=== PATIENT | female | born 1990 | race Caucasian/White ===

== ENCOUNTER 2020-08-16 22:04 | Inpatient (IN) ==
[2020-08-17] MEDS ORDERED: SODIUM CHLORIDE 0.9% 1,000 ML IV STA (04:08)
[2020-08-17 04:24] LABS: Basophils % 0.3 % (0.0-0.8); Eosinophils # 0.1 10*3/uL (0.0-0.87); Eosinophils % 0.4 % (0.00-10.9); Hemoglobin 13.3 GM/DL (12.0-16.0); Immature Granulocytes % 0.4 %; Immature Granulocytes Absolute 0.05 #; Lymphocytes # 1.5 10*3/uL (1.4-4.0); Mean Corpuscular HGB Conc 33.3 GM/DL (32-36); Mean Corpuscular Volume 91.3 FL (87-102); Mean Platelet Volume 9.5 FL (9.6-12.0); Monocytes % 7.5 % (1.7-12.7); Neutrophils % 78.4 % (38.7-73.9); Platelet Count 208 T/CUMM (130-400); Red Blood Count 4.38 MC/CUMM (3.8-5.5); White Blood Count 11.5 T/CUMM (4-12)
[2020-08-17 04:34] LABS: Bilirubin,Urine Negative (Negative); Blood, Urine Large mg/dL (Negative); Glucose,Urine (UA) Negative (Negative); Ketones,Urine 5 mg/dL (Negative); Mucus,Urine Moderate /LPF (Occasional); Nitrite,Urine Negative (Negative); Protein,Urine 100 MG/DL; RBC,Urine 3492 /HPF (0-4); Squamous Epithelial Cell,Urine Occasional /HPF (0-10); Urine Appearance CLOUDY (Clear); Urine Color Amber (Yellow); Urine Urobilinogen < 2.0 EU/DL (0.2-1.0)
[2020-08-17 04:55] LABS: Alanine Aminotransferase 17 U/L (13-56); Alkaline Phosphatase 67 U/L (45-117); Aspartate Amino Transferase 13 U/L (0-37); Bilirubin,Total < 0.39 MG/DL (0.2-1.0); Blood Urea Nitrogen 13 MG/DL (7-18); Calcium 8.7 MG/DL (8.5-10.1); Carbon Dioxide 28 MMOL/L (21-32); Estimated Glom Filtration Rate 56 ML/MIN; Glucose 120 MG/DL (74-106); Potassium 3.6 MMOL/L (3.5-5.1); Sodium 136 MMOL/L (136-145); Total Protein 6.7 G/DL (6.4-8.2)
[2020-08-17] MEDS ORDERED: cefTRIAXone 1,000 MG in SODIUM CHLORIDE 0.9% 100 ML IV STA (05:03)
[2020-08-17] MEDS ORDERED: ONDANSETRON 4 MG/2 ML VIAL ONE (05:42)
[2020-08-17] MEDS ORDERED: MORPHINE 4 MG/1 ML VIAL ONE (05:43)
[2020-08-17] MEDS ORDERED: ONDANSETRON 4 MG/2 ML VIAL IV PRN ×2 (05:44→07:53)
[2020-08-17] MEDS ORDERED: MORPHINE 4 MG/1 ML VIAL IV STA (05:48)
[2020-08-17] MEDS ORDERED: ONDANSETRON 4 MG/2 ML VIAL IV STA (05:49)
[2020-08-17] MEDS ORDERED: SODIUM CHLORIDE 0.45% 1,000 ML IV SCH (06:00)
[2020-08-17] MEDS ORDERED: DEXAMETHASONE 4 MG/1 ML VIAL ONE (08:27)
[2020-08-17] MEDS ORDERED: LIDOCAINE 2% 5 ML VIAL ONE (08:27)
[2020-08-17] MEDS ORDERED: fentaNYL 100 MCG/2 ML VIAL ONE (08:27)
[2020-08-17] MEDS ORDERED: propofoL 200 MG/20 ML VIAL IV ONE (08:27)
[2020-08-17] MEDS ORDERED: SUCCINYLCHOLINE 200 MG/10 ML VIAL ONE (08:27)
[2020-08-17] MEDS ORDERED: LACTATED RINGERS 1,000 ML IV ONE (08:28)
[2020-08-17 08:30] LABS: Bacteria,Urine Occasional /HPF (Few); Bilirubin,Urine Negative (Negative); Blood, Urine Large mg/dL (Negative); Glucose,Urine (UA) Negative (Negative); Ketones,Urine Negative (Negative); Mucus,Urine Occasional /LPF (Occasional); Nitrite,Urine Negative (Negative); Protein,Urine Negative; RBC,Urine 167 /HPF (0-4); Urine Appearance CLEAR (Clear); Urine Color Straw (Yellow); Urine Specific Gravity 1.006 (1.001-1.035); Urine Urobilinogen < 2.0 EU/DL (0.2-1.0)
[2020-08-17] MEDS ORDERED: MIDAZOLAM 2 MG/2 ML VIAL ONE (08:37)
[2020-08-17] MEDS: HYDROmorphone 2 MG/1 ML VIAL IV PRN ×2 (09:06→09:12)
[2020-08-17] MEDS: MORPHINE 4 MG/1 ML VIAL IV PRN ×2 (10:20→15:44)
[2020-08-17] MEDS: SODIUM CHLORIDE 0.9% 1,000 ML IV SCH ×2 (12:57→21:02)
[2020-08-17] MEDS: OXYBUTYNIN 5 MG TABLET PO PRN ×2 (12:58→19:43)
[2020-08-17] MEDS: cefTRIAXone 1,000 MG in SODIUM CHLORIDE 0.9% 100 ML IV SCH (17:32)
[2020-08-17] MEDS: DOCUSATE SODIUM 100 MG CAPSULE PO SCH (21:02)
[2020-08-17] MEDS: MORPHINE 2 MG/1 ML SYRINGE IV PRN (21:04)
[2020-08-18] MEDS: MORPHINE 2 MG/1 ML SYRINGE IV PRN ×4 (01:29→19:48)
[2020-08-18] MEDS: OXYBUTYNIN 5 MG TABLET PO PRN ×2 (04:30→14:31)
[2020-08-18] MEDS: SODIUM CHLORIDE 0.9% 1,000 ML IV SCH ×3 (05:02→19:46)
[2020-08-18] MEDS: DOCUSATE SODIUM 100 MG CAPSULE PO SCH ×2 (09:27→20:57)
[2020-08-18] MEDS: cefTRIAXone 1,000 MG in SODIUM CHLORIDE 0.9% 100 ML IV SCH ×2 (09:27→16:59)
[2020-08-19] MEDS: MORPHINE 2 MG/1 ML SYRINGE IV PRN ×4 (02:15→18:08)
[2020-08-19] MEDS: OXYBUTYNIN 5 MG TABLET PO PRN ×3 (05:14→20:53)
[2020-08-19 06:16] LABS: Basophils % 0.3 % (0.0-0.8); Eosinophils # 0.1 10*3/uL (0.0-0.87); Eosinophils % 0.9 % (0.00-10.9); Hematocrit 34.6 VOL% (35.7-47.0); Hemoglobin 11.4 GM/DL (12.0-16.0); Immature Granulocytes % 0.3 %; Immature Granulocytes Absolute 0.02 #; Lymphocytes # 1.5 10*3/uL (1.4-4.0); Mean Corpuscular HGB Conc 32.9 GM/DL (32-36); Mean Corpuscular Volume 89.9 FL (87-102); Mean Platelet Volume 10.4 FL (9.6-12.0); Monocytes % 6.8 % (1.7-12.7); Neutrophils % 65.7 % (38.7-73.9); Platelet Count 230 T/CUMM (130-400); Red Blood Count 3.85 MC/CUMM (3.8-5.5); Red Cell Distribution Width 12.1 % (9.3-17.3); White Blood Count 5.8 T/CUMM (4-12)
[2020-08-19] MEDS: cefTRIAXone 1,000 MG in SODIUM CHLORIDE 0.9% 100 ML IV SCH (06:17)
[2020-08-19] MEDS: SODIUM CHLORIDE 0.9% 1,000 ML IV SCH ×3 (06:18→20:53)
[2020-08-19 06:39] LABS: Calcium 8.5 MG/DL (8.5-10.1); Osmolality,Calculated 285.7 MOS/KG (273-304); Potassium 3.9 MMOL/L (3.5-5.1)
[2020-08-19] MEDS: DOCUSATE SODIUM 100 MG CAPSULE PO SCH ×2 (08:28→20:53)
[2020-08-19] MEDS ORDERED: LEVOFLOXACIN INJ 500 MG/100 ML PREMIX IV SCH (13:00)
[2020-08-20] MEDS: MORPHINE 2 MG/1 ML SYRINGE IV PRN ×4 (02:01→21:40)
[2020-08-20] MEDS: OXYBUTYNIN 5 MG TABLET PO PRN ×2 (05:03→16:46)
[2020-08-20] MEDS: SODIUM CHLORIDE 0.9% 1,000 ML IV SCH ×2 (05:04→21:35)
[2020-08-20] MEDS: DOCUSATE SODIUM 100 MG CAPSULE PO SCH ×2 (08:26→21:41)
[2020-08-20] MEDS: AMPICILLIN INJ 2,000 MG in SODIUM CHLORIDE 0.9% 100 ML IV SCH ×4 (08:27→21:40)
[2020-08-21] MEDS: AMPICILLIN INJ 2,000 MG in SODIUM CHLORIDE 0.9% 100 ML IV SCH ×5 (00:32→20:55)
[2020-08-21] MEDS: OXYBUTYNIN 5 MG TABLET PO PRN ×3 (00:34→21:06)
[2020-08-21] MEDS: SODIUM CHLORIDE 0.9% 1,000 ML IV SCH ×4 (03:40→20:56)
[2020-08-21] MEDS: DOCUSATE SODIUM 100 MG CAPSULE PO SCH ×2 (12:18→20:57)
[2020-08-21] MEDS: MORPHINE 2 MG/1 ML SYRINGE IV PRN ×2 (14:06→20:05)
[2020-08-22] MEDS: AMPICILLIN INJ 2,000 MG in SODIUM CHLORIDE 0.9% 100 ML IV SCH ×6 (00:56→22:32)
[2020-08-22 04:22] LABS: Basophils # 0.1 10*3/uL (0.0-0.2); Basophils % 0.7 % (0.0-0.8); Eosinophils # 0.3 10*3/uL (0.0-0.87); Eosinophils % 3.9 % (0.00-10.9); Hematocrit 33.9 VOL% (35.7-47.0); Hemoglobin 11.4 GM/DL (12.0-16.0); Immature Granulocytes % 0.4 %; Immature Granulocytes Absolute 0.03 #; Lymphocytes # 2.8 10*3/uL (1.4-4.0); Mean Corpuscular HGB Conc 33.6 GM/DL (32-36); Mean Corpuscular Volume 89.9 FL (87-102); Mean Platelet Volume 10.1 FL (9.6-12.0); Monocytes % 5.7 % (1.7-12.7); Neutrophils % 51.3 % (38.7-73.9); Platelet Count 295 T/CUMM (130-400); Red Blood Count 3.77 MC/CUMM (3.8-5.5); Red Cell Distribution Width 11.9 % (9.3-17.3); White Blood Count 7.5 T/CUMM (4-12)
[2020-08-22 04:34] LABS: Osmolality,Calculated 276.4 MOS/KG (273-304); Potassium 3.5 MMOL/L (3.5-5.1)
[2020-08-22 05:00] LABS: Hypochromasia Slight; Microcytosis Slight
[2020-08-22 05:01] LABS: Platelet Estimate Normal
[2020-08-22] MEDS: MORPHINE 2 MG/1 ML SYRINGE IV PRN ×3 (07:39→17:52)
[2020-08-22] MEDS: DOCUSATE SODIUM 100 MG CAPSULE PO SCH ×2 (08:48→22:31)
[2020-08-22] MEDS: OXYBUTYNIN 5 MG TABLET PO PRN ×2 (08:48→22:31)
[2020-08-22] MEDS ORDERED: MAGNESIUM SULF RIDER 2 GM/50 ML PREMIX IV PRN (11:09)
[2020-08-22] MEDS ORDERED: MAGNESIUM SULF RIDER 4 GM/100 ML PREMIX IV PRN (11:09)
[2020-08-22] MEDS: SODIUM CHLORIDE 0.9% 1,000 ML IV SCH ×2 (15:19→22:31)
[2020-08-23] MEDS: AMPICILLIN INJ 2,000 MG in SODIUM CHLORIDE 0.9% 100 ML IV SCH ×6 (01:14→19:51)
[2020-08-23] MEDS: SODIUM CHLORIDE 0.9% 1,000 ML IV SCH ×3 (05:44→16:35)
[2020-08-23 05:51] LABS: Basophils % 0.4 % (0.0-0.8); Eosinophils # 0.3 10*3/uL (0.0-0.87); Eosinophils % 3.5 % (0.00-10.9); Hematocrit 41.1 VOL% (35.7-47.0); Immature Granulocytes % 0.3 %; Immature Granulocytes Absolute 0.03 #; Lymphocytes # 2.5 10*3/uL (1.4-4.0); Lymphocytes % 27.2 % (21.3-54.2); Mean Corpuscular HGB Conc 33.8 GM/DL (32-36); Mean Corpuscular Volume 89.5 FL (87-102); Mean Platelet Volume 9.6 FL (9.6-12.0); Monocytes % 5.2 % (1.7-12.7); Neutrophils % 63.4 % (38.7-73.9); Red Cell Distribution Width 11.9 % (9.3-17.3); White Blood Count 9.1 T/CUMM (4-12)
[2020-08-23 06:07] LABS: Hemoglobin 13.9 GM/DL (12.0-16.0); Red Blood Count 4.59 MC/CUMM (3.8-5.5)
[2020-08-23 06:08] LABS: Platelet Count 401 T/CUMM (130-400)
[2020-08-23 06:09] LABS: Calcium 8.2 MG/DL (8.5-10.1); Osmolality,Calculated 288.4 MOS/KG (273-304); Potassium 3.7 MMOL/L (3.5-5.1)
[2020-08-23] MEDS: MORPHINE 2 MG/1 ML SYRINGE IV PRN ×2 (07:30→12:04)
[2020-08-23] MEDS: DOCUSATE SODIUM 100 MG CAPSULE PO SCH ×2 (08:24→21:38)
[2020-08-23] MEDS: OXYBUTYNIN 5 MG TABLET PO PRN (08:33)
[2020-08-24] MEDS: AMPICILLIN INJ 2,000 MG in SODIUM CHLORIDE 0.9% 100 ML IV SCH ×6 (00:49→20:21)
[2020-08-24 04:39] LABS: Basophils # 0.1 10*3/uL (0.0-0.2); Basophils % 0.6 % (0.0-0.8); Eosinophils # 0.4 10*3/uL (0.0-0.87); Eosinophils % 4.5 % (0.00-10.9); Hematocrit 34.8 VOL% (35.7-47.0); Hemoglobin 11.9 GM/DL (12.0-16.0); Immature Granulocytes % 0.2 %; Immature Granulocytes Absolute 0.02 #; Lymphocytes # 3.2 10*3/uL (1.4-4.0); Lymphocytes % 38.6 % (21.3-54.2); Mean Corpuscular HGB Conc 34.2 GM/DL (32-36); Mean Corpuscular Volume 90.9 FL (87-102); Mean Platelet Volume 9.3 FL (9.6-12.0); Monocytes % 5.8 % (1.7-12.7); Neutrophils % 50.3 % (38.7-73.9); Platelet Count 327 T/CUMM (130-400); Red Blood Count 3.83 MC/CUMM (3.8-5.5); Red Cell Distribution Width 12.2 % (9.3-17.3); White Blood Count 8.2 T/CUMM (4-12)
[2020-08-24 05:23] LABS: Calcium 8.5 MG/DL (8.5-10.1); Potassium 3.4 MMOL/L (3.5-5.1)
[2020-08-24] MEDS ORDERED: POTASSIUM CHLORIDE 20 MEQ TABLET PO ONE (07:20)
[2020-08-24] MEDS: DOCUSATE SODIUM 100 MG CAPSULE PO SCH ×2 (09:47→20:21)
[2020-08-25] MEDS: AMPICILLIN INJ 2,000 MG in SODIUM CHLORIDE 0.9% 100 ML IV SCH ×7 (00:30→23:05)
[2020-08-25] MEDS: DEXT 5% NACL 0.45% KCL 20 MEQ 20 MEQ/1,000 ML BAG IV SCH (07:14)
[2020-08-25] MEDS: DOCUSATE SODIUM 100 MG CAPSULE PO SCH ×2 (08:41→20:40)
[2020-08-25] MEDS ORDERED: LIDOCAINE 2% 5 ML VIAL ONE (09:58)
[2020-08-25] MEDS ORDERED: propofoL 200 MG/20 ML VIAL IV ONE (09:58)
[2020-08-25] MEDS ORDERED: MIDAZOLAM 2 MG/2 ML VIAL ONE (09:59)
[2020-08-25] MEDS ORDERED: fentaNYL 100 MCG/2 ML VIAL ONE (09:59)
[2020-08-25] MEDS ORDERED: SEVOFLURANE 1 UNIT/15 MINUTE INH ONE ×2 (10:12→11:21)
[2020-08-25] MEDS ORDERED: ONDANSETRON 4 MG/2 ML VIAL ONE (10:26)
[2020-08-25] MEDS ORDERED: DEXAMETHASONE 4 MG/1 ML VIAL ONE (10:26)
[2020-08-25] MEDS ORDERED: LACTATED RINGERS 1,000 ML IV SCH (10:30)
[2020-08-25] MEDS ORDERED: GENTAMICIN 80 MG/2 ML VIAL ONE (10:35)
[2020-08-25] MEDS ORDERED: SODIUM CHLORIDE 0.9% 100 ML IV ONE (10:36)
[2020-08-25] MEDS ORDERED: ACETAMINOPHEN INJ 1,000 MG/100 ML VIAL IV ONE (10:48)
[2020-08-25] MEDS ORDERED: ONDANSETRON 4 MG/2 ML VIAL IV PRN (11:41)
[2020-08-25] MEDS ORDERED: HYDROmorphone 2 MG/1 ML VIAL ONE (11:43)
[2020-08-25] MEDS: HYDROmorphone 2 MG/1 ML VIAL IV PRN ×3 (11:47→12:07)
[2020-08-25] MEDS: OXYBUTYNIN 5 MG TABLET PO PRN (17:22)
[2020-08-26] MEDS ORDERED: AMOXICILLIN 875 MG TABLET PO ONE
[2020-08-26] MEDS: DEXT 5% NACL 0.45% KCL 20 MEQ 20 MEQ/1,000 ML BAG IV SCH ×3 (01:12→11:30)
[2020-08-26] MEDS: AMPICILLIN INJ 2,000 MG in SODIUM CHLORIDE 0.9% 100 ML IV SCH ×5 (03:07→20:00)
[2020-08-26] MEDS: OXYBUTYNIN 5 MG TABLET PO PRN ×2 (04:02→19:33)
[2020-08-26] MEDS: DOCUSATE SODIUM 100 MG CAPSULE PO SCH ×2 (09:00→20:02)
[2020-08-26] MEDS: POTASSIUM CHLORIDE 20 MEQ TABLET PO SCH (09:01)
[2020-08-26] MEDS: MAGNESIUM OXIDE 400 MG TABLET PO SCH ×2 (09:08→20:01)
[2020-08-27] MEDS: AMPICILLIN INJ 2,000 MG in SODIUM CHLORIDE 0.9% 100 ML IV SCH ×5 (00:40→20:08)
[2020-08-27] MEDS ORDERED: AMOXICILLIN 875 MG TABLET PO ONE (00:52)
[2020-08-27] MEDS ORDERED: POTASSIUM CHLORIDE 20 MEQ TABLET PO ONE (06:57)
[2020-08-27] MEDS: DOCUSATE SODIUM 100 MG CAPSULE PO SCH ×2 (08:21→20:08)
[2020-08-27] MEDS: OXYBUTYNIN 5 MG TABLET PO PRN ×2 (08:21→20:39)
[2020-08-27] MEDS: MAGNESIUM OXIDE 400 MG TABLET PO SCH ×2 (08:22→20:08)
[2020-08-27] MEDS: POTASSIUM CHLORIDE 20 MEQ TABLET PO SCH (08:22)
[2020-08-28] MEDS: AMPICILLIN INJ 2,000 MG in SODIUM CHLORIDE 0.9% 100 ML IV SCH ×3 (00:08→10:08)
[2020-08-28 07:06] LABS: Basophils # 0.1 10*3/uL (0.0-0.2); Basophils % 0.7 % (0.0-0.8); Eosinophils # 0.3 10*3/uL (0.0-0.87); Eosinophils % 2.9 % (0.00-10.9); Hematocrit 47.4 VOL% (35.7-47.0); Hemoglobin 15.8 GM/DL (12.0-16.0); Immature Granulocytes % 0.2 %; Immature Granulocytes Absolute 0.02 #; Lymphocytes % 22.7 % (21.3-54.2); Mean Corpuscular HGB Conc 33.3 GM/DL (32-36); Mean Corpuscular Volume 91.3 FL (87-102); Mean Platelet Volume 9.1 FL (9.6-12.0); Monocytes % 5.4 % (1.7-12.7); Neutrophils % 68.1 % (38.7-73.9); Platelet Count 461 T/CUMM (130-400); Red Blood Count 5.19 MC/CUMM (3.8-5.5); Red Cell Distribution Width 12.8 % (9.3-17.3); White Blood Count 8.9 T/CUMM (4-12)
[2020-08-28 07:24] LABS: Calcium 9.6 MG/DL (8.5-10.1); Osmolality,Calculated 276.5 MOS/KG (273-304); Potassium 4.6 MMOL/L (3.5-5.1)
[2020-08-28] MEDS ORDERED: LACTATED RINGERS 1,000 ML IV SCH (09:30)
[2020-08-28] MEDS ORDERED: AMPICILLIN/SULBACTAM 3,000 MG VIAL ONE (09:45)
[2020-08-28] MEDS ORDERED: fentaNYL 100 MCG/2 ML VIAL ONE ×3 (09:50→10:36)
[2020-08-28] MEDS ORDERED: MIDAZOLAM 2 MG/2 ML VIAL ONE (09:51)
[2020-08-28] MEDS ORDERED: HYDROmorphone 2 MG/1 ML VIAL ONE (11:41)
[2020-08-28] MEDS ORDERED: ONDANSETRON 4 MG/2 ML VIAL IV PRN (11:41)
[2020-08-28] MEDS: HYDROmorphone 2 MG/1 ML VIAL IV PRN ×4 (11:44→12:16)
[2020-08-28] MEDS ORDERED: MEPERIDINE 25 MG/1 ML VIAL IV ONE (12:22)
[2020-08-28] MEDS ORDERED: FLUCONAZOLE 200 MG TABLET PO ONE (13:00)
[2020-08-28] MEDS ORDERED: AMOXICILLIN 875 MG TABLET PO SCH (13:00)
[2020-08-28] MEDS: DOCUSATE SODIUM 100 MG CAPSULE PO SCH (13:32)
[2020-08-28] MEDS: POTASSIUM CHLORIDE 20 MEQ TABLET PO SCH (13:32)
[2020-08-28] MEDS: MAGNESIUM OXIDE 400 MG TABLET PO SCH (13:32)
[2020-08-28 13:53] VITALS: BP 122/81
[2020-08-29 13:16] LABS: Stone Analysis Interpretation SEE COMMENTS; Stone Source Left Ureter
== END 2020-08-28 14:30 | disposition home or self-care (01) | DRG 660 ==
LOC: N.ED 22:04 → N.EDINP 22:04 → N.4E 08-17 07:02
PROVIDERS: ADMIT Surgery; ATTEND Surgery